=== PATIENT | female | born 1980 | race Two or more races ===

== ENCOUNTER 2018-10-02 07:09 | Outpatient (CLI) | payer OTHER | END 2018-10-02 07:11 | disposition home or self-care (01) | LOC: SONOGRAMA 07:09 | DX: E04.1 Nontoxic single thyroid nodule (principal) ==

== ENCOUNTER 2022-11-14 17:41 | Inpatient (IN) | payer OTHER ==
[~2022-11-14] VITALS: Ht 162.6 cm; Wt 63.5 kg
[~2022-11-14 17:41] MED LIST: SYNTHROID88 MCG PO
--- NOTE | 2022-11-14 17:53 | NUR ---
PT ALERTA Y ORIENTADA X3 REFEIRE TENER DOLOR ABDOMINAL DESDE LAS 3PM. REFIERE PATRICIA PRESENTADO 1 VOMITO. EN ADDICION AL LLEGAR A TRIAGE PTE PRESENTA ATAQUE DE PANICO.
--- NOTE | 2022-11-14 18:22 | NUR ---
PTE ES EVALUADO POR DR REDMAN. PTE SE ORIENTA Y VERBALIZA QUE ACCEPTA. SE EJECUTA ORDEN MEDICA EN HUTCHISON TOTALIDAD. PEND A RESULTADOS DE LAB.
--- NOTE | 2022-11-14 23:11 | NUR ---
SE RECIBE PTE DEL TURNO ANTERIOR, ALERTA Y ORIENTADA EN SHIRLEY CAITLIN ESFERAS, UBICADA EN DEVON NIVEL MAS BAJO, MARCOS DE IDENTIFICACION Y BARANDAS ELEVADAS POR PRECAUCION. SE OBSERVA CON BUEN PATRON RESPIRATORIO Y PIEL TIBIA AL TACTO. IV PATENTE Y BARBARA DE EDEMA O ERITEMA RECIBIENDO 0.9% NSS @150ML/HR. PENDIENTE CONSULTA CON DR HUGO GRIFFIN (SURGERY). SE MANTIENE BAJO OBSERVACION. PTE REFIERE LE ESTA COMENZANDO EL DOLOR ABDOMINAL SE ORIENTA SOBRE ORDEN MEDICA DE MEDICAMENTOS PARA EL DOLOR Q4HRS, REFIERE ENTENDER.
--- NOTE | 2022-11-15 07:12 | NUR ---
SE RECIBE PTE FEMENINA DE42 YRS ALERTA CONCIENT Y TRANQUILA EN DEVON CON BARABDA ELEVADA . PTE PENDIENTE A CONSULTOR MEDICA., SE MANTIENE BAJO OBSERVACION.
[2022-11-17] MEDS ORDERED: INTESTINEX680 M1 PO (15:11)
[2022-11-17] MEDS ORDERED: LEVSIN/SL0.125 MG SL (15:11)
== END 2022-11-17 16:29 | disposition home or self-care (01) | DRG 390 ==
LOC: ER 17:41 → MEDJ 11-15 13:55 → SEC-K 11-15 13:55 → MEDJ 11-15 18:02
PROVIDERS: ADMIT Surgery; ATTEND Surgery
PROC: BW21YZZ Computerized Tomography (CT Scan) of Abdomen and Pelvis using Other Contrast (ICD-10-PCS; principal; 2022-11-14)
DX: K56.690 Other partial intestinal obstruction (principal); E03.9 Hypothyroidism, unspecified; K66.8 Other specified disorders of peritoneum

== ENCOUNTER 2022-11-22 10:20 | Outpatient (CLI) | payer OTHER ==
[~2022-11-22 10:20] MED LIST changes: +INTESTINEX680 M1 PO; +LEVSIN/SL0.125 MG SL
== END 2022-11-22 10:26 | disposition home or self-care (01) ==
LOC: SONOGRAMA 10:20
PROVIDERS: ATTEND Pathology Anatomic Pathology & Clinical Pathology
DX: D34 Benign neoplasm of thyroid gland (principal); E06.3 Autoimmune thyroiditis; E04.9 Nontoxic goiter, unspecified; E04.1 Nontoxic single thyroid nodule